=== PATIENT | male | born 1970 | race Caucasian/White ===

== ENCOUNTER → 2018-07-30 | Outpatient (CLI) | payer OTHER ==
--- NOTE | 2018-07-30 19:40 | RADIOLOGY IMAGING REPORT ---
[place] [facility] [place] NAME: Justo Anderson : 1970 MR: [id number] V: [id number] EXAM DATE: ORDERING PHYSICIAN: NENITA VENTURA TECHNOLOGIST: Location: [facility] [place] Patient: Justo Anderson : 1970 Visit/Account:[id number] Date of Sevice: 07/30/2018 EXAMINATION: Left Lower Extremity Venous Ultrasound HISTORY: Left leg pain. Kiana a pop 10 days ago. TECHNIQUE: Ultrasound evaluation of the left lower extremity veins was performed with color and spec tral Doppler and compression views. COMPARISON: None. FINDINGS: The left common femoral, femoral, proximal deep femoral, popliteal, and segmentally visualized deep c elder veins are patent and compressible, without evidence of intraluminal thrombus. The visualized upp er greater saphenous vein is patent. No discrete fluid collection or hematoma is visualized along the left calf in a reported area of brui sing. IMPRESSION: Normal exam. No evidence of DVT in the left leg. Report Dictated By: Gregorio Newman MD at 07/30/2018 7:36 PM Report E-Signed By: Gregorio Newman MD at 07/30/2018 7:37 PM WSN:[id number]
== END ==
LOC: US 18:27
PROVIDERS: ATTEND Nurse Practitioner Family
DX: M79.605 Pain in left leg (principal)